=== PATIENT | male | born 1945 | race Caucasian/White ===

== ENCOUNTER 2022-08-29 18:45 | Observation (INO) | payer OTHER ==
[2022-08-29 20:25] LABS: HEMATOCRIT 47.2 % (35.4-49); HEMOGLOBIN 16.2 G/dL (11.7-16.9); MCH 31.5 pg (25.7-33.7); MCHC 34.4 g/dl (32.0-35.9); MEAN CELL VOLUME 91.7 fl (80-96); MEAN PLT VOLUME 8.4 fl (7.5-11.1); PLATELET COUNT 104.3 10^3/uL (134-434); RBC 5.15 10^6/uL (4.00-5.60); WHITE BLOOD COUNT 5.1 10^3/uL (4.0-10.8)
[2022-08-29 20:37] LABS: ALBUMIN 3.8 g/dl (3.4-5.0); BILIRUBIN,TOTAL 1.1 mg/dl (0.2-1); CALCIUM 9.1 mg/dl (8.5-10); CREATININE 0.7 mg/dl (0.55-1.3); TOT PROT 6.6 g/dl (6.4-8.2)
[2022-08-29] MEDS ORDERED: LIDOCAINE PATCH REMOVAL MC SCH (22:00)
[2022-08-29 22:27] LABS: PLATELET ESTIMATE SLT DECREASE
[2022-08-29] MEDS ORDERED: oxyCODONE/APAP PERCOCET - MUST ORDER INDIVIDUAL COMPONENTS NR ONE (23:27)
[2022-08-30] VITALS: BMI 33.3
[2022-08-30] MEDS: METOPROLOL TARTRATE 25 MG TABLET (FP) PO SCH ×3 (00:21→21:16)
[2022-08-30] MEDS: ZOLPIDEM TARTRATE 5 MG TABLET PO PRN ×2 (00:43→21:16)
[2022-08-30] MEDS: INSULIN SLIDING SCALE (NOVOLOG) 1 VIAL SQ SCH ×4 (06:47→22:47)
[2022-08-30] MEDS ORDERED: LEVOTHYROXINE NA 50 MCG TABLET (FP) PO SCH (07:00)
[2022-08-30 07:59] LABS: MAGNESIUM 1.9 mg/dL (1.8-2.4)
[2022-08-30] MEDS: LIDOCAINE 5% TOPICAL PATCH TP SCH (09:50)
[2022-08-30] MEDS: LOSARTAN POTASSIUM 50 MG TABLET PO SCH (09:52)
[2022-08-30] MEDS: SERTRALINE HCL 50 MG TABLET (FP) PO SCH (09:52)
[2022-08-30] MEDS ORDERED: INSULIN (LEVEMIR) 100 UNITS/ML UNITS SQ SCH (10:00)
[2022-08-30] MEDS ORDERED: FUROSEMIDE 40 MG TABLET (FP) PO SCH (10:00)
[2022-08-30] MEDS: ENOXAPARIN NA (PORCINE) 40 MG/0.4 ML DISP.SYRIN SQ SCH (12:47)
[2022-08-30] MEDS: FUROSEMIDE 40 MG TABLET (FP) PO SCH (13:45)
[2022-08-30] MEDS: ROSUVASTATIN CA 20 MG TABLET PO SCH (21:16)
[2022-08-30] MEDS: INSULIN (LEVEMIR) 100 UNITS/ML UNITS SQ SCH (21:17)
[2022-08-30] MEDS: LIDOCAINE PATCH REMOVAL MC SCH (22:46)
[2022-08-31] MEDS: FUROSEMIDE 40 MG TABLET (FP) PO SCH ×2 (05:46→15:13)
[2022-08-31] MEDS: LEVOTHYROXINE NA 75 MCG TABLET (FP) PO SCH (06:09)
[2022-08-31] MEDS: INSULIN SLIDING SCALE (NOVOLOG) 1 VIAL SQ SCH ×4 (06:09→22:00)
[2022-08-31] MEDS ORDERED: LOPERAMIDE HCL 2 MG CAPSULE PO PRN (07:07)
[2022-08-31 08:42] LABS: ALBUMIN 3.7 g/dl (3.4-5.0); BILIRUBIN,TOTAL 0.8 mg/dl (0.2-1); CALCIUM 8.6 mg/dl (8.5-10); CREATININE 1.4 mg/dl (0.55-1.3); TOT PROT 6.1 g/dl (6.4-8.2)
[2022-08-31] MEDS: METOPROLOL TARTRATE 25 MG TABLET (FP) PO SCH ×2 (09:33→21:59)
[2022-08-31] MEDS: ENOXAPARIN NA (PORCINE) 40 MG/0.4 ML DISP.SYRIN SQ SCH (09:33)
[2022-08-31] MEDS: LOSARTAN POTASSIUM 50 MG TABLET PO SCH (09:33)
[2022-08-31] MEDS: SERTRALINE HCL 50 MG TABLET (FP) PO SCH (09:34)
[2022-08-31] MEDS: LIDOCAINE 5% TOPICAL PATCH TP SCH (09:34)
[2022-08-31 10:06] LABS: BASO % 0.3 % (0-2.0); EOS % 1.7 % (0-4.5); HEMATOCRIT 44.7 % (35.4-49); HEMOGLOBIN 15.1 GM/dL (11.7-16.9); LYMPH % 12.5 % (8-40); MCH 31.1 pg (25.7-33.7); MCHC 33.9 g/dl (32.0-35.9); MEAN CELL VOLUME 91.9 fl (80-96); MEAN PLT VOLUME 8.4 fl (7.5-11.1); MONO % 8.4 % (3.8-10.2); NEUT % 77.1 % (42.8-82.8); PLATELET COUNT 126 10^3/uL (134-434); RBC 4.86 M/mm3 (4.00-5.60); RDW 14.6 % (11.9-15.9); WHITE BLOOD COUNT 5.3 K/mm3 (4.0-10.0)
[2022-08-31] MEDS ORDERED: POTASSIUM CHLORIDE TABS 10 MEQ TABLET.ER (FP) PO ONE (20:35)
[2022-08-31] MEDS: ROSUVASTATIN CA 20 MG TABLET PO SCH (21:46)
[2022-08-31] MEDS: APIXABAN 5 MG TABLET PO SCH (21:46)
[2022-08-31] MEDS: INSULIN (LEVEMIR) 100 UNITS/ML UNITS SQ SCH (21:49)
[2022-08-31] MEDS: ZOLPIDEM TARTRATE 5 MG TABLET PO PRN (21:59)
[2022-08-31] MEDS: LIDOCAINE PATCH REMOVAL MC SCH (22:00)
[2022-09-01] MEDS: LEVOTHYROXINE NA 75 MCG TABLET (FP) PO SCH (06:46)
[2022-09-01] MEDS: FUROSEMIDE 40 MG TABLET (FP) PO SCH ×2 (06:47→13:30)
[2022-09-01] MEDS: INSULIN SLIDING SCALE (NOVOLOG) 1 VIAL SQ SCH ×2 (06:51→11:38)
[2022-09-01 09:01] LABS: CALCIUM 8.8 mg/dl (8.5-10); CREATININE 0.9 mg/dl (0.55-1.3)
[2022-09-01 09:24] VITALS: RESP 18
[2022-09-01] MEDS: SERTRALINE HCL 50 MG TABLET (FP) PO SCH (09:44)
[2022-09-01] MEDS: LOSARTAN POTASSIUM 50 MG TABLET PO SCH (09:44)
[2022-09-01] MEDS: APIXABAN 5 MG TABLET PO SCH (09:44)
[2022-09-01] MEDS: LIDOCAINE 5% TOPICAL PATCH TP SCH (09:44)
[2022-09-01] MEDS: METOPROLOL TARTRATE 25 MG TABLET (FP) PO SCH (09:44)
[2022-09-01] MEDS ORDERED: POTASSIUM CHLORIDE ORAL LIQUID 20 MEQ/15 ML PO ONE (12:06)
[2022-09-01 14:31] VITALS: BP 112/67; PULSE 68; TEMP 98.7
== END 2022-09-01 14:31 ==
LOC: FER 18:45 → FM/S 21:47
PROVIDERS: ADMIT Internal Medicine; ATTEND Internal Medicine
PROC: 3E023GC Introduction of Other Therapeutic Substance into Muscle, Percutaneous Approach (ICD-10-PCS; principal; 2022-08-29)
PROC: 3E013VG Introduction of Insulin into Subcutaneous Tissue, Percutaneous Approach (ICD-10-PCS; 2022-08-29)
DX: K59.1 Functional diarrhea (principal); I11.0 Hypertensive heart disease with heart failure; I48.0 Paroxysmal atrial fibrillation; E66.8 Other obesity; H91.13 Presbycusis, bilateral; Z68.33 Body mass index [BMI] 33.0-33.9, adult; Z87.891 Personal history of nicotine dependence; Z89.512 Acquired absence of left leg below knee; Z89.511 Acquired absence of right leg below knee; R29.6 Repeated falls; Z79.01 Long term (current) use of anticoagulants; K58.9 Irritable bowel syndrome, unspecified; R52 Pain, unspecified
CPT/HCPCS: 0241U-QW; 36415; 71045-TC-FY; 80048; 80053; 81003; 81015; 82962; 82977; 83735; 83880; 84443; 84484; 85025; 85027; 85651; 87205; 93005; 96372; 97116-GP; 97162-GP; 99285-25; G0378